=== PATIENT | male | born 1945 | race Caucasian/White ===

== ENCOUNTER 2017-03-14 17:54 | Inpatient (IN) | payer MEDICARE, BC ==
[2017-03-13 21:08] VITALS: BP 137/78
[~2017-03-14] VITALS: Ht 182.9 cm; Wt 67.8 kg
[2017-03-14 18:51] LABS: ASPARTATE AMINO TRANSFERASE 17 U/L (15-37); BLOOD UREA NITROGEN 19 mg/dL (7-18)
[2017-03-14] MEDS ORDERED: LEVETIRACETAM 750 MG in SODIUM CHLORIDE 0.9% 100 ML IV ONE (20:00)
[2017-03-14] MEDS ORDERED: SODIUM CHLORIDE FLUSH 10ML SYR IVF PRN (20:30)
[2017-03-14 21:08] VITALS: BP 137/78
[2017-03-14] MEDS ORDERED: BISACODYL 10 MG SUPP PR PRN (22:30)
[2017-03-14] MEDS ORDERED: POLYETHYLENE GLYCOL 17 GM PACKET PO PRN (22:30)
[2017-03-14] MEDS ORDERED: ONDANSETRON 2MG/ML, 2ML IVPush PRN (22:30)
[2017-03-14] MEDS ORDERED: ACETAMINOPHEN 325 MG TABLET PO PRN (22:30)
[2017-03-14] MEDS ORDERED: DIPHENHYDRAMINE 25 MG CAPSULE PO ONE (22:30)
[2017-03-14] MEDS: SODIUM CHLORIDE FLUSH 10ML SYR IVF SCH (23:00)
[2017-03-15 01:22] VITALS: BP 116/74
[2017-03-15 08:00] VITALS: BP 120/70
[2017-03-15] MEDS: SODIUM CHLORIDE FLUSH 10ML SYR IVF SCH (08:13)
[2017-03-15] MEDS ORDERED: SENNA/DOCUSATE TABLET PO SCH (09:00)
[2017-03-15] MEDS ORDERED: LEVETIRACETAM 500 MG TABLET PO SCH (12:00)
[2017-03-15] MEDS ORDERED: LEVE500T53 PO (14:12)
[2017-03-15 14:36] VITALS: BP 109/67
== END 2017-03-15 16:15 | disposition home or self-care (01) | DRG 101 ==
LOC: ED 18:30 → 4WST 20:29
PROVIDERS: ADMIT Internal Medicine; ATTEND Internal Medicine
DX: G40.209 Localization-related (focal) (partial) symptomatic epilepsy and epileptic syndromes with complex partial seizures, not intractable, without status epilepticus (principal); F03.90 Unspecified dementia, unspecified severity, without behavioral disturbance, psychotic disturbance, mood disturbance, and anxiety; G47.00 Insomnia, unspecified; Z90.49 Acquired absence of other specified parts of digestive tract; Z85.828 Personal history of other malignant neoplasm of skin; Z88.0 Allergy status to penicillin
CPT/HCPCS: 36415; 70450; 70551; 71010; 80053; 85025; 93005; 93306; 95819; 96365; J1953; Q0163

== ENCOUNTER 2017-09-23 16:05 | Emergency (ER) | payer MEDICARE, BC ==
[~2017-09-23] VITALS: Ht 182.9 cm; Wt 74.9 kg
[~2017-09-23 16:05] MED LIST: LEVE500T53 PO
[2017-09-23] MEDS ORDERED: SODIUM CHLORIDE 0.9% 1,000 ML IV ONE (16:50)
[2017-09-23] MEDS ORDERED: ONDANSETRON 2MG/ML, 2ML IVPush ONE (17:00)
[2017-09-23] MEDS ORDERED: FAMOTIDINE 20 MG/2 ML IVP ONE (17:00)
[2017-09-23] MEDS ORDERED: MAALOX/HYOSCYAMINE/LIDOCAINE 45 ML BTL PO ONE (17:00)
[2017-09-23] MEDS ORDERED: SODIUM CHLORIDE FLUSH 10ML SYR IVF ONE (17:00)
[2017-09-23 17:18] LABS: BASOPHILS # (AUTO) 0.06 x10^3/uL (0-0.1); BASOPHILS % (AUTO) 1 % (0-1); EOSINOPHILS # (AUTO) 0.38 x10^3/uL (0-0.4); EOSINOPHILS % (AUTO) 5 % (1-7); LYMPHOCYTES # (AUTO) 2.37 x10^3/uL (1-3.4); LYMPHOCYTES % (AUTO) 33 % (22-44); MD NO; MEAN CORPUSCULAR HEMOGLOBIN 30.5 pg (27.5-34.5); MEAN CORPUSCULAR HGB CONC 33.2 g/dL (33.2-36.2); MEAN CORPUSCULAR VOLUME 91.7 fL (81-97); MEAN PLATELET VOLUME 8.2 fL (7.4-10.4); MONOCYTES # (AUTO) 0.71 x10^3/uL (0.2-0.8); MONOCYTES % (AUTO) 10 % (2-9); NEUTROPHILS % (AUTO) 51 % (42-75); PLATELET COUNT 256 x10^3/uL (130-400); RED BLOOD COUNT 4.54 x10^6/uL (4.38-5.82); RED CELL DISTRIBUTION WIDTH 12.9 % (9.4-14.8)
[2017-09-23 17:29] LABS: ANION GAP 5 mmol/L (5-15); CALCIUM 8.5 mg/dL (8.5-10.1); CHLORIDE 110 mmol/L (98-107); CREATININE 1.31 mg/dL (0.7-1.3)
[2017-09-23 17:30] LABS: ALANINE AMINOTRANSFERASE 24 U/L (12-78); ALBUMIN 3.4 g/dL (3.4-5.0)
[2017-09-23 17:31] LABS: ALKALINE PHOSPHATASE 55 U/L (45-117); BILIRUBIN,TOTAL 0.6 mg/dL (0.2-1.0); TOTAL PROTEIN 6.8 g/dL (6.4-8.2)
[2017-09-23 20:28] LABS: TROPONIN I < 0.015 ng/mL (0.000-0.045)
[2017-09-23] MEDS ORDERED: MAALOX/HYOSCYAMINE/LIDOCAINE 45 ML BTL ONE (20:41)
[2017-09-23] MEDS ORDERED: ONDANSETRON 2MG/ML, 2ML ONE (20:41)
[2017-09-23] MEDS ORDERED: FAMOTIDINE 20 MG/2 ML ONE (20:41)
[2017-09-23] MEDS ORDERED: OMNIPAQUE 350 MG/ML, 100ML BOTTLE ONE (22:51)
[2017-09-24 00:11] VITALS: BP 124/78
== END 2017-09-24 00:14 | disposition home or self-care (01) ==
LOC: ED 23:43
DX: K21.0 Gastro-esophageal reflux disease with esophagitis (principal); K85.00 Idiopathic acute pancreatitis without necrosis or infection; Z88.0 Allergy status to penicillin; Z90.49 Acquired absence of other specified parts of digestive tract
CPT/HCPCS: 36415; 74177; 76700; 80053; 83690; 83735; 84484; 85025; 93005; 96361; 96374; 96375; 99285; J2405; J7030; Q9967; S0028

== ENCOUNTER 2017-12-08 09:57 | Day surgery (SDC) | payer MEDICARE, BC ==
[~2017-12-08] VITALS: Ht 182.9 cm; Wt 77.8 kg
[~2017-12-08 09:57] MED LIST changes: +OMEP-110 PO
[2017-12-08 10:17] VITALS: BP 121/80
[2017-12-08] MEDS ORDERED: LACTATED RINGERS 1,000 ML IV SCH (10:21)
[2017-12-08] MEDS ORDERED: MAG355OR14 PO (10:26)
[2017-12-08] MEDS ORDERED: LIDOCAINE-MPF 1%, 2ML INFIL ONE (10:30)
[2017-12-08] MEDS ORDERED: ZONI100C2 PO (10:31)
[2017-12-08] MEDS ORDERED: PROMETHAZINE 12.5 MG SUPP PR PRN (12:30)
[2017-12-08] MEDS ORDERED: LABETALOL 5MG/ML, 20ML IV PRN (12:30)
[2017-12-08] MEDS ORDERED: MEPERIDINE/PF 25MG/0.5ML IVPush PRN (12:30)
[2017-12-08] MEDS ORDERED: MIDAZOLAM 1 MG/ML, 2ML IV PRN (12:30)
[2017-12-08] MEDS ORDERED: OXYcodone 5 MG/5 ML ORAL.SOL UDC PO PRN (12:30)
[2017-12-08] MEDS ORDERED: FENTANYL PF 100 MCG/2ML IV PRN (12:30)
[2017-12-08] MEDS ORDERED: ONDANSETRON 2MG/ML, 2ML IVPush PRN (12:30)
[2017-12-08] MEDS ORDERED: ALBUTEROL SULFATE 2.5 MG/3 ML NPPB PRN (12:30)
[2017-12-08] MEDS ORDERED: hydrALAzine 20 MG/ML, 1ML IV PRN (12:30)
[2017-12-08] MEDS ORDERED: morphine SULFATE 10 MG/ML, 1ML IV PRN (12:30)
[2017-12-08] MEDS ORDERED: PROPOFOL 10 MG/ML, 20ML ONE (15:44)
== END 2017-12-08 14:05 ==
LOC: OUT 09:57
PROVIDERS: ATTEND Internal Medicine Geriatric Medicine
DX: K86.2 Cyst of pancreas (principal); K21.0 Gastro-esophageal reflux disease with esophagitis; E16.4 Increased secretion of gastrin; K85.90 Acute pancreatitis without necrosis or infection, unspecified; Z72.89 Other problems related to lifestyle; Z90.49 Acquired absence of other specified parts of digestive tract
CPT/HCPCS: 43239; 43259; 88305; J2704; J3490; J7120

== ENCOUNTER → 2018-08-25 | Outpatient (CLI) | payer MEDICARE, BC ==
[~2018-08-25] MED LIST changes: +MAG355OR14 PO; +OMNIPAQUE 350 MG/ML, 100ML BOTTLE ONE; +ZONI100C2 PO
== END | disposition home or self-care (01) ==
LOC: CFH 08:34
PROVIDERS: ATTEND Internal Medicine Geriatric Medicine
DX: K76.0 Fatty (change of) liver, not elsewhere classified (principal); K40.20 Bilateral inguinal hernia, without obstruction or gangrene, not specified as recurrent; K86.2 Cyst of pancreas
CPT/HCPCS: 74177; Q9967